=== PATIENT | female | born 1985 | race American Indian/Alaskan Native ===

== ENCOUNTER 2019-05-08 17:57 | Emergency (ER) | payer MEDICAID, OTHER ==
[2019-05-08 18:05] VITALS: BP 136/103
--- NOTE | 2019-05-08 18:50 | Emergency Department Report ---
ED ENT HPI - General Chief complaint: Dental/Oral Stated complaint: TOOTHACHE Source: patient Mode of arrival: Ambulatory Limitations: No Limitations - History of Present Illness Initial comments: 33 year old female comes in for a toothache for 3-4 weeks has been on Penicillin and taking Tylenol. Her prescription was filled on 04/17/19. No fever or chills. Able to eat. MD complaint: tooth pain Onset/Timin -: week(s) Location: tooth # (17) Severity: severe Severity scale (0 -10): 8 Quality: aching Consistency: constant Worsens with: eating Associated Symptoms: toothache. denies: fever, gum swelling, pain with swallowing, sore throat - Related Data Previous Rx's Medication Instructions Recorded Last Taken Type Ibuprofen [Motrin 800 MG tab] 800 mg PO Q8HR PRN #15 tablet 05/08/19 Unknown Rx Allergies Allergy/AdvReac Type Severity Reaction Status Date / Time No Known Allergies Allergy Unverified 05/08/19 17:58 ED Dental HPI - General Chief complaint: Dental/Oral Stated complaint: TOOTHACHE Source: patient Mode of arrival: Ambulatory Limitations: No Limitations - Related Data Previous Rx's Medication Instructions Recorded Last Taken Type Ibuprofen [Motrin 800 MG tab] 800 mg PO Q8HR PRN #15 tablet 05/08/19 Unknown Rx Allergies Allergy/AdvReac Type Severity Reaction Status Date / Time No Known Allergies Allergy Unverified 05/08/19 17:58 ED Review of Systems ROS: Stated complaint: TOOTHACHE Other details as noted in HPI Comment: All other systems reviewed and negative ED Past Medical Hx - Past Medical History Previous Medical History?: No - Surgical History Past Surgical History?: No - Medications Home Medications: Home Medications Medication Instructions Recorded Confirmed Last Taken Type Ibuprofen [Motrin 800 MG tab] 800 mg PO Q8HR PRN #15 tablet 05/08/19 Unknown Rx ED Physical Exam - General Limitations: No Limitations General appearance: alert, in no apparent distress - Head Head exam: Present: atraumatic, normocephalic - Eye Eye exam: Present: normal appearance - ENT ENT exam: Present: mucous membranes moist - Expanded ENT Exam Expanded Teeth exam: Present: dental tenderness # (17). Absent: gingival enlargement - Neck Neck exam: Present: normal inspection - Neurological Exam Neurological exam: Present: alert, oriented X3 - Psychiatric Psychiatric exam: Present: normal affect, normal mood - Skin Skin exam: Present: warm, dry, intact, normal color. Absent: rash ED Course Vital Signs 05/08/19 18:04 Temperature 98 F Pulse Rate 84 Respiratory 20 Rate Blood Pressure 136/103 [Left] O2 Sat by Pulse 100 Oximetry ED Medical Decision Making - Medical Decision Making 33 y/o female with 3-4 week history of tooth pain with a full course of abx. She has not f/u with a dentist as she is waiting for her medicaid to be active since she is from [place]. Patient will be given a rx for Ibuprofen 800mg tid. Referral to dentist. Critical care attestation.: If time is entered above; I have spent that time in minutes in the direct care of this critically ill patient, excluding procedure time. ED Disposition Clinical Impression: Toothache Disposition: DC-01 TO HOME OR SELFCARE Is pt being admited?: No Does the pt Need Aspirin: No Condition: Stable Instructions: Toothache (ED) Additional Instructions: Take pain medication as prescribed. Follow up with a dentist. Prescriptions: Ibuprofen [Motrin 800 MG tab] 800 mg PO Q8HR PRN #15 tablet PRN Reason: Pain , Severe (7-10) Referrals: [facility] [Outside] - 3-5 Days [facility] [Outside] - 3-5 Days Forms: Work/School Release Form(ED)
== END 2019-05-08 19:01 | disposition home or self-care (01) ==
LOC: ED 17:57
DX: K08.89 Other specified disorders of teeth and supporting structures (principal); Z79.1 Long term (current) use of non-steroidal anti-inflammatories (NSAID)
CPT/HCPCS: 99282

== ENCOUNTER 2019-07-26 15:06 | Emergency (ER) | payer MEDICAID ==
[2019-07-26 15:22] VITALS: BP 130/95
--- NOTE | 2019-07-26 15:59 | Emergency Department Report ---
Chief Complaint: High BP Stated Complaint: HBP Time Seen by Provider: 07/26/19 15:53 - HPI History of Present Illness: 34 y o female presents to Ed stating she was sent to Ed from dental appointment for dental surgery she states it was high at the dentist office but she has no hx of HTN. She denies fever/cp/headache/ - ROS Review of Systems: As noted in HPI - Exam Vital Signs: Vital Signs 07/26/19 07/26/19 15:19 15:21 Temperature 98.2 F Pulse Rate 82 74 Respiratory 16 Rate Blood Pressure 137/86 Blood Pressure 130/95 [Left] O2 Sat by Pulse 98 Oximetry MSE screening note: Focused history and physical exam performed. Due to findings the following was ordered: ED Disposition for MSE Clinical Impression: Elevated blood pressure reading without diagnosis of hypertension Disposition: 01 TO HOME OR SELFCARE Is pt being admited?: No Does the pt Need Aspirin: No Condition: Stable Instructions: High Fiber Diet (ED), Heart Healthy Diet (ED) Referrals: PRIMARY CARE, [Primary Care Provider] - 3-[address] [facility] [Provider Group] - 3-5 Days [facility] [Outside] - 3-5 Days [facility] [Outside] - 3-5 Days Forms: Work/School Release Form(ED) Time of Disposition: 16:01
== END 2019-07-26 16:25 | disposition home or self-care (01) ==
LOC: ED 15:06
DX: R03.0 Elevated blood-pressure reading, without diagnosis of hypertension (principal)
CPT/HCPCS: 99281

== ENCOUNTER 2020-01-20 10:39 | Emergency (ER) | payer MEDICAID ==
[2020-01-20 10:48] VITALS: BP 148/89
--- NOTE | 2020-01-20 10:52 | Emergency Department Report ---
Chief Complaint: Back Pain/Injury Stated Complaint: CHEST PAIN/BACK PAIN Time Seen by Provider: 01/20/20 10:45 - HPI History of Present Illness: 34 y/o female comes in for chronic back and chest pain. Patient has been worked up at another hospital and was told to follow up with a quality control coordinator and Primary Care Provider. Patient has had a ECHO done. - Exam Physical Exam: axo times 3 NAD Ambulatory without diff. MSE screening note: Focused history and physical exam performed. Due to findings the following was ordered: 34 y/o female comes in for chronic back and chest pain. Patient has been worked up at another hospital and was told to follow up with a quality control coordinator and Primary Care Provider. Patient has had a ECHO done. Referral to quality control coordinator and Primary care provider. ED Disposition for MSE Disposition: MED SCREENING EXAM-LEFT Is pt being admited?: No Does the pt Need Aspirin: No Condition: Stable Referrals: SUZY STINSON MD [Staff Physician] - 3-5 Days [facility] [Provider Group] - 3-5 Days
== END 2020-01-20 11:15 | disposition left against medical advice (07) ==
LOC: ED 10:39
DX: M54.9 Dorsalgia, unspecified (principal); R07.9 Chest pain, unspecified; Z53.21 Procedure and treatment not carried out due to patient leaving prior to being seen by health care provider